=== PATIENT | female | born 1950 | race Caucasian/White ===

== ENCOUNTER → 2016-06-23 | Outpatient (CLI) | payer BC | END | disposition home or self-care (01) | LOC: LAB.O 08:58 | PROVIDERS: ATTEND Internal Medicine Sports Medicine | DX: Z79.899 Other long term (current) drug therapy (principal); M05.09 Felty's syndrome, multiple sites; Z13.220 Encounter for screening for lipoid disorders ==

== ENCOUNTER → 2016-06-29 | Outpatient (CLI) | payer BC | END | disposition home or self-care (01) | LOC: RESP 11:58 | PROVIDERS: ATTEND Family Medicine | DX: L03.211 Cellulitis of face (principal) ==

== ENCOUNTER → 2016-10-13 | Outpatient (CLI) | payer BC | LOC: GMAB 16:23 | PROVIDERS: ATTEND Family Medicine | DX: R30.0 Dysuria (principal) ==

== ENCOUNTER → 2016-10-13 | Outpatient (CLI) | payer BC | END | disposition home or self-care (01) | LOC: GMAB 11:07 | PROVIDERS: ATTEND Family Medicine | DX: Z00.01 Encounter for general adult medical examination with abnormal findings (principal) ==

== ENCOUNTER → 2017-03-25 | Outpatient (CLI) | payer BC | LOC: LAB.O 11:03 | PROVIDERS: ATTEND Internal Medicine Sports Medicine | DX: M05.09 Felty's syndrome, multiple sites (principal); E78.5 Hyperlipidemia, unspecified; Z79.899 Other long term (current) drug therapy; Z01.89 Encounter for other specified special examinations ==

== ENCOUNTER → 2018-01-26 | Outpatient (CLI) | payer BC | LOC: GMAE 16:43 | PROVIDERS: ATTEND Family Medicine | DX: E04.1 Nontoxic single thyroid nodule (principal); R94.6 Abnormal results of thyroid function studies ==

== ENCOUNTER → 2018-11-09 | Outpatient (CLI) | payer BC | LOC: GMAE 10:25 | PROVIDERS: ATTEND Family Medicine | DX: Z00.00 Encounter for general adult medical examination without abnormal findings (principal) ==

== ENCOUNTER → 2019-10-03 | Outpatient (CLI) | payer BC | LOC: LAB.O 09:19 | PROVIDERS: ATTEND Internal Medicine Sports Medicine | DX: M05.09 Felty's syndrome, multiple sites (principal); Z79.899 Other long term (current) drug therapy ==

== ENCOUNTER → 2019-11-22 | Outpatient (CLI) | payer BC | LOC: GMAE 14:14 | PROVIDERS: ATTEND Family Medicine | DX: R94.6 Abnormal results of thyroid function studies (principal); E78.2 Mixed hyperlipidemia ==